=== PATIENT | male | born 1975 | race Two or more races ===

== ENCOUNTER 2017-06-09 21:02 | Emergency (ER) | payer SELFPAY ==
[~2017-06-09] VITALS: Ht 177.8 cm; Wt 81.6 kg
--- NOTE | 2017-06-09 21:29 | PHYS DOC ---
Past Medical History Past Medical History: Seizure Past Surgical History: No Surgical History Adult General Chief Complaint Chief Complaint: LACERATION/AVULSION HPI HPI Patient is a 41 year old male presents to the emergency department with family. Daughter is the only Beninese speaking person. The wrist examination. Patient states that he dropped a bar on his right forearm he has an approximately 2 cm laceration. No bleeding at the site noted. Patient does have full range of motion of the lower extremity. Review of Systems Review of Systems Constitutional: Denies fever or chills [] Eyes: Denies change in visual acuity, redness, or eye pain [] HENT: Denies nasal congestion or sore throat [] Respiratory: Denies cough or shortness of breath [] Cardiovascular: No additional information not addressed in HPI [] GI: Denies abdominal pain, nausea, vomiting, bloody stools or diarrhea [] : Denies dysuria or hematuria [] Musculoskeletal: Denies back pain or joint pain [] Integument: Denies rash or skin lesions. Left forearm laceration. Neurologic: Denies headache, focal weakness or sensory changes [] Endocrine: Denies polyuria or polydipsia [] Current Medications Current Medications Current Medications Medications (Trade) Dose Ordered Sig/Marisel Start Time Stop Time Status Last Admin Dose Admin Diphtheria/ Tetanus/Acell Pertussis (Boostrix) 0.5 ml ONCE ONCE 06/09/17 22:00 06/09/17 22:01 DC 06/09/17 22:10 0.5 ML Lidocaine/Sodium Bicarbonate (Buffered Lidocaine 1%) 20 ml 1X ONCE 06/09/17 22:00 06/09/17 22:01 DC 06/09/17 22:10 20 ML Allergies Allergies Allergies Coded Allergies Type Severity Reaction Last Updated Verified No Known Drug Allergies 06/09/17 No Physical Exam Physical Exam Constitutional: Well developed, well nourished, no acute distress, non-toxic appearance. [] HENT: Normocephalic, atraumatic, bilateral external ears normal, oropharynx moist, no oral exudates, nose normal. [] Eyes: PERRLA, EOMI, conjunctiva normal, no discharge. [] Neck: Normal range of motion, no tenderness, supple, no stridor. [] Cardiovascular:Heart rate regular rhythm Lungs & Thorax: No respiratory distress noted Skin: Warm, dry, no erythema, no rash. Patient with a 2 cm laceration noted to the left forearm. Bleeding is currently controlled. Back: No tenderness Extremities: No tenderness, no cyanosis, no clubbing, ROM intact, no edema. [] Neurologic: Alert and oriented X 3, normal motor function, normal sensory function, no focal deficits noted. [] Psychologic: Affect normal, judgement normal, mood normal. [] Current Patient Data Vital Signs Vital Signs Date Time Temp Pulse Resp B/P (MAP) Pulse Ox O2 Delivery O2 Flow Rate FiO2 06/09/17 21:40 97.4 84 16 98 Room Air 97.4 EKG EKG [] Radiology/Procedures Radiology/Procedures [] Course & Med Decision Making Course & Med Decision Making Pertinent Labs and Imaging studies reviewed. (See chart for details) Patient will be discharged home in stable condition. Recommended keeping the area clean and dry. Clean the site twice daily with soap and water and apply antibiotic ointment. Watch for signs and symptoms of infection: Redness, warmth , tenderness or any yellow/greenish drainage of a come from the site physician occur follow-up through primary care physician immediately. Otherwise sutures out in the next 7-10 days. Tylenol or ibuprofen for pain and discomfort ice packs on 20 minutes off 20 minutes several times a day. Patient will be discharged home in stable condition since symptoms to return back to emergency department as been provided. All questions and concerns was inserted to the roofing layer line. [] Dragon Disclaimer Dragon Disclaimer This electronic medical record was generated, in whole or in part, using a voice recognition dictation system. Departure Departure Impression: Primary Impression: Laceration Disposition: 01 HOME, SELF-CARE Condition: STABLE Patient Instructions: Laceration Care, Adult, Sutured Wound Care, [id number] Additional Instructions: Activity as tolerated. Tylenol or ibuprofen for pain and discomfort. Keep the area clean and dry. Clean the site twice daily with soap and water and apply antibiotic ointment to the area. Watch for signs and symptoms of infection: Redness, warmth, tenderness or any yellow/greenish drainage of a come from the site physician occur follow-up to primary care physician immediately. Follow-up with a primary care physician next 7-10 days to the sutures removed. Return back to emergency prior signs symptoms of become worse. Laceration/Wound Repair Laceration/Wound Repair : Wound Location: upper extremity Wound's Depth, Shape: superficial Wound Length (cm): 3 Wound Explored: clean Irrigated w/ Saline (ccs): 100 Betadine Prep?: Yes Anesthesia: 1% Lidocaine Volume Anesthetic (ccs): 4 Wound Debrided: minimal Wound Repaired With: sutures Suture Size/Type: 3:0, nylon Number of Sutures: 3 Progress Laceration was explored for any foreign bodies with no foreign bodies noted. Patient tolerated procedure well. MARIA ANTONIA DE ANDA APRN Jun 09, 2017 21:29
[2017-06-09 21:40] VITALS: BP 124/76
[2017-06-09] MEDS ORDERED: PHEN100C PO (21:46)
[2017-06-09] MEDS ORDERED: LIDOCAINE 1% / SOD BICARB 8.4% 20 ML VIAL. IJ ONE (22:00)
[2017-06-09] MEDS ORDERED: DIPHTH,PERTUSS(ACELL),TET TOX 0.5 ML DISP.SYRIN. VAX IM ONE (22:00)
== END 2017-06-09 22:23 | disposition home or self-care (01) ==
LOC: ER 21:02
DX: S51.811A Laceration without foreign body of right forearm, initial encounter (principal); W20.8XXA Other cause of strike by thrown, projected or falling object, initial encounter; Y93.89 Activity, other specified; Y92.89 Other specified places as the place of occurrence of the external cause; Y99.8 Other external cause status
CPT/HCPCS: 12002; 90471; 90715; 99283-25

== ENCOUNTER 2017-06-16 18:40 | Emergency (ER) | payer SELFPAY ==
[~2017-06-16] VITALS: Ht 175.3 cm; Wt 81.6 kg
[~2017-06-16 18:40] MED LIST: PHEN100C PO
[2017-06-16 19:01] VITALS: BP 119/69
--- NOTE | 2017-06-16 19:11 | PHYS DOC ---
Past Medical History Past Medical History: Seizure Additional Past Medical Histor: LAST SEIZURE "YEARS AGO" Past Surgical History: No Surgical History Alcohol Use: Heavy Drug Use: None Adult General Chief Complaint Chief Complaint: SUTURE/STAPLE REMOVAL HPI HPI Patient is a 41 year old male who presents for suture removal from the left forearm. Patient states the sutures have been in for 1 week. Patient is Croatian-speaking and the doctor is doing the interpretation. Review of Systems Review of Systems Constitutional: Denies fever or chills [] Musculoskeletal: Denies back pain or joint pain [] Integument: Suture removal from the left forearm Neurologic: Denies headache, focal weakness or sensory changes [] Allergies Allergies Allergies Coded Allergies Type Severity Reaction Last Updated Verified No Known Drug Allergies 06/09/17 No Physical Exam Physical Exam Constitutional: Well developed, well nourished, no acute distress, non-toxic appearance. [] Skin: Left forearm with 3 interrupted sutures. Laceration site is well approximated. No signs of infection. Back: No tenderness, no CVA tenderness. [] Extremities: No tenderness, no cyanosis, no clubbing, ROM intact, no edema. [] Neurologic: Alert and oriented X 3, normal motor function, normal sensory function, no focal deficits noted. [] Psychologic: Affect normal, judgement normal, mood normal. [] Current Patient Data Vital Signs Vital Signs Date Time Temp Pulse Resp B/P (MAP) Pulse Ox O2 Delivery O2 Flow Rate FiO2 06/16/17 19:01 98.6 83 18 95 Room Air 98.6 EKG EKG [] Radiology/Procedures Radiology/Procedures [] Course & Med Decision Making Course & Med Decision Making Pertinent Labs and Imaging studies reviewed. (See chart for details) Patient is in the ED for suture removal. Three interrupted sutures were removed from the laceration site by me. Laceration site is well approximated, no signs of infection. Follow-up with primary care doctor in 1-2 weeks as needed. Dragon Disclaimer Dragon Disclaimer This electronic medical record was generated, in whole or in part, using a voice recognition dictation system. Departure Departure Impression: Primary Impression: Visit for suture removal Disposition: HOME, SELF-CARE Condition: STABLE Referrals: NO PCP (PCP) follow up as needed Patient Instructions: Suture Removal Additional Instructions: You had stitches removed from the left forearm. Keep the area clean and dry. Follow-up with your doctor in 1-2 weeks as needed TONG MURRAY APRN Jun 16, 2017 19:11
== END 2017-06-16 19:18 | disposition home or self-care (01) ==
LOC: ER 18:40
DX: Z48.02 Encounter for removal of sutures (principal)
CPT/HCPCS: 99281

== ENCOUNTER 2018-03-09 12:49 | Emergency (ER) | payer SELFPAY ==
[2018-03-09] MEDS ORDERED: LIDOCAINE WITH 8.4% SOD BICARB 3 ML DISP.SYRIN. INJ (13:30)
[2018-03-09] MEDS ORDERED: DIPHTH,PERTUSS(ACELL),TET TOX 0.5 ML DISP.SYRIN. VAX IM (13:30)
[2018-03-09] MEDS: HYDROcodone/APAP 5/325MG 1 TAB TABLET PO (13:43)
== END 2018-03-09 14:40 | disposition home or self-care (01) ==
LOC: ER 12:49
DX: L03.115 Cellulitis of right lower limb (principal)
CPT/HCPCS: 73630; 99284

== ENCOUNTER 2018-03-10 21:03 | Emergency (ER) | payer SELFPAY ==
[2018-03-10] MEDS: LIDOCAINE WITH 8.4% SOD BICARB 3 ML DISP.SYRIN. INJ (21:44)
[2018-03-10] MEDS: cefTRIAXone IM 1 GM VIAL IM (22:30)
[2018-03-10] MEDS ORDERED: LIDOCAINE 1% PF 2 ML VIAL. INJ (22:30)
== END 2018-03-10 22:45 | disposition home or self-care (01) ==
LOC: ER 21:03
DX: L03.115 Cellulitis of right lower limb (principal); L02.611 Cutaneous abscess of right foot; F10.10 Alcohol abuse, uncomplicated
CPT/HCPCS: 10060; 96372; 99283; J0696